=== PATIENT | female | born 1985 | race Caucasian/White ===

== ENCOUNTER 2017-06-22 16:51 | Emergency (ER) | payer OTHER ==
[2017-06-22 16:59] VITALS: BP 130/86
[2017-06-22] MEDS ORDERED: DIPHENHYDRAMINE HCL 25 MG CAPSULE PO ONE (17:05)
[2017-06-22] MEDS ORDERED: PREDNISONE 20 MG TABLET PO ONE (17:05)
[2017-06-22] MEDS ORDERED: FAMOTIDINE 20 MG TABLET PO ONE (17:05)
--- NOTE | 2017-06-22 17:07 | ER Document Report ---
ED Skin Rash/Insect Bite/Abscs - General Chief Complaint: Insect Bite Stated Complaint: POSSIBLE ALLERGIC REACTION Time Seen by Provider: 06/22/17 17:05 Mode of Arrival: Ambulatory Information source: Patient TRAVEL OUTSIDE OF THE [place] IN LAST 30 DAYS: No - HPI Patient complains to provider of: Tender/swollen area, Insect bite Onset: Last week Onset/Duration: Persistent Quality of pain: Achy, Fullness Severity: Mild Pain Level: 1 Quality of rash: Itchy Exacerbated by: Standing, Movement, Walking Relieved by: Denies Similar symptoms previously: No Recently seen / treated by doctor: No Notes: Patient is a 31-year-old female presenting to the emergency room today complaining of insect bite to her left lateral malleolus area that has been swollen and itchy over the past 10 days, she denies any redness, no drainage, no injury to this area, she states it does make it difficult for her to ambulate normally since she has so much swelling to the area, no history of similar symptoms previously - Related Data Allergies/Adverse Reactions: No Known Allergies Allergy (Verified 06/22/17 16:57) Past Medical History - General Information source: Patient - Social History Smoking Status: Never Smoker Family History: Reviewed & Not Pertinent - Past Medical History Cardiac Medical History: Denies: Hx Coronary Artery Disease, Hx Heart Attack, Hx Hypertension Pulmonary Medical History: Denies: Hx Asthma, Hx Bronchitis, Hx COPD, Hx Pneumonia Neurological Medical History: Reports: Hx Migraine. Denies: Hx Cerebrovascular Accident, Hx Seizures Renal/ Medical History: Denies: Hx Peritoneal Dialysis Musculoskeltal Medical History: Denies Hx Arthritis Past Surgical History: Reports: Hx Appendectomy, Hx Section - x2, Hx Oral Surgery, Hx Tonsillectomy - Immunizations Hx Diphtheria, Pertussis, Tetanus Vaccination: Yes Review of Systems - Review of Systems Constitutional: No symptoms reported EENT: No symptoms reported Cardiovascular: No symptoms reported Respiratory: No symptoms reported Gastrointestinal: No symptoms reported Genitourinary: No symptoms reported Female Genitourinary: No symptoms reported Musculoskeletal: No symptoms reported Skin: See HPI Hematologic/Lymphatic: No symptoms reported Neurological/Psychological: No symptoms reported -: Yes All other systems reviewed and negative Physical Exam - Vital signs Vitals: Temp Pulse Resp BP Pulse Ox 97.6 F 95 20 130/86 H 100 06/22/17 16:58 06/22/17 16:58 06/22/17 16:58 06/22/17 16:58 06/22/17 16:58 - Notes Notes: - General General appearance: Appears well, Alert In distress: None - HEENT Head: Normocephalic, Atraumatic Eyes: Normal Conjunctiva: Normal Extraocular movements intact: Yes Eyelashes: Normal Pupils: PERRL - Respiratory Respiratory status: No respiratory distress - Cardiovascular Rhythm: Regular - Abdominal Inspection: Normal - Back Back: Normal - Extremities General upper extremity: Normal inspection General lower extremity: To the tissue surrounding the left lateral malleolus there is a small scabbed area resembling an insect bite, there is mild swelling to this area as well, no ecchymosis, no erythema, no increased warmth, distal sensation and motor is intact - Neurological Neuro grossly intact: Yes Orientation: AAOx4 Red[place] Coma Scale Eye Opening: Spontaneous [place] Coma Scale Verbal: Oriented Red[place] Coma Scale Motor: Obeys Commands Leonela Coma Scale Total: 15 - Psychological Associated symptoms: Normal affect, Normal mood - Skin Skin Temperature: Warm Skin Moisture: Dry Skin Color: Normal Course - Re-evaluation Re-evalutation: 06/22/17 17:12 Physical exam findings are consistent with an insect bite with mild swelling, no erythema, no drainage, no fluctuance, no signs of active infection, patient was discharged with medications for symptomatic relief, advised to follow-up with a primary care provider or return if symptoms worsen, patient acknowledges understanding and agreement with this plan - Vital Signs Vital signs: Temp Pulse Resp BP Pulse Ox 97.6 F 95 20 130/86 H 100 06/22/17 16:58 06/22/17 16:58 06/22/17 16:58 06/22/17 16:58 06/22/17 16:58 Discharge - Discharge Clinical Impression: Insect bite Qualifiers: Encounter type: initial encounter Qualified Code(s): W57.XXXA - Bitten or stung by nonvenomous insect and other nonvenomous arthropods, initial encounter Condition: Stable Disposition: HOME, SELF-CARE Instructions: Insect Bites ([facility]), Swollen Insect Bite or Sting ([facility]) Additional Instructions: Follow up with your primary care provider in one to 2 days. Return to the emergency room immediately if symptoms worsen or any additional concerns. Ice and elevate the affected extremity. Prescriptions: Diphenhydramine HCl [Benadryl 25 Mg Capsule] 25 mg PO Q6 #30 capsule Famotidine [Pepcid 20 mg Tablet] 20 mg PO BID #12 tablet Prednisone 40 mg PO DAILY #8 tablet
== END 2017-06-22 17:15 | disposition home or self-care (01) ==
LOC: ER 16:51
DX: S90.562A Insect bite (nonvenomous), left ankle, initial encounter (principal); W57.XXXA Bitten or stung by nonvenomous insect and other nonvenomous arthropods, initial encounter
CPT/HCPCS: 99281; J7512

== ENCOUNTER 2017-08-08 14:59 | Emergency (ER) | payer OTHER ==
--- NOTE | 2017-08-08 16:40 | ER Document Report ---
ED Medical Screen (RME) - General Chief Complaint: Abdominal Pain Stated Complaint: LEFT FLANK PAIN Mode of Arrival: Ambulatory Information source: Patient TRAVEL OUTSIDE OF THE [place] IN LAST 30 DAYS: No - HPI Notes: 08/08/17 16:37 LLQ PAIN X 2 DAYS. HX OF SCAR TISSUE IN LEFT FALLOPIAN TUBE. NAUSEA. NO VOMITING. NO FEVER. LNMP 1 MONTH AGO. SHOULD BE STARTING ANY TIME. NO HX OF KIDNEY STONES. PRIOR APPY. TENDERNESS TO THE LLQ. - Related Data Allergies/Adverse Reactions: No Known Allergies Allergy (Verified 08/08/17 15:11) Past Medical History - Past Medical History Cardiac Medical History: Denies: Hx Coronary Artery Disease, Hx Heart Attack, Hx Hypertension Pulmonary Medical History: Denies: Hx Asthma, Hx Bronchitis, Hx COPD, Hx Pneumonia Neurological Medical History: Reports: Hx Migraine. Denies: Hx Cerebrovascular Accident, Hx Seizures Renal/ Medical History: Denies: Hx Peritoneal Dialysis Musculoskeltal Medical History: Denies Hx Arthritis Past Surgical History: Reports: Hx Appendectomy, Hx Section - x2, Hx Oral Surgery, Hx Tonsillectomy - Immunizations Hx Diphtheria, Pertussis, Tetanus Vaccination: Yes Review of Systems - Review of Systems -: Yes All other systems reviewed and negative Physical Exam - Vital signs Vitals: Temp Pulse Resp BP Pulse Ox 98.3 F 85 16 114/84 100 08/08/17 15:15 08/08/17 15:15 08/08/17 15:15 08/08/17 15:15 08/08/17 15:15 - General General appearance: Appears well - HEENT Head: Normocephalic - Respiratory Respiratory status: No respiratory distress - Cardiovascular Rhythm: Regular - Abdominal Inspection: Normal Distension: No distension Tenderness: Tender - LLQ - Extremities General lower extremity: Normal inspection - Neurological Neuro grossly intact: Yes - Psychological Associated symptoms: Normal affect - Skin Skin Temperature: Warm Skin Moisture: Dry Course - Vital Signs Vital signs: Temp Pulse Resp BP Pulse Ox 98.3 F 85 16 114/84 100 08/08/17 15:15 08/08/17 15:15 08/08/17 15:15 08/08/17 15:15 08/08/17 15:15
[2017-08-08 18:20] LABS: APPEARANCE,URINE CLEAR; BILIRUBIN,URINE NEGATIVE (NEGATIVE); GLUCOSE, URINE NEGATIVE (NEGATIVE); KETONES,URINE NEGATIVE (NEGATIVE); LEUKOCYTE ESTERASE,URINE NEGATIVE (NEGATIVE); NITRITE,URINE NEGATIVE (NEGATIVE); PROTEIN,URINE NEGATIVE (NEGATIVE); URINE SPECIFIC GRAVITY 1.002; UROBILINOGEN,URINE NEGATIVE mg/dL (<2.0)
[2017-08-08 18:22] LABS: HEMATOCRIT 35.8 % (36.0-47.0); HEMOGLOBIN 12.4 g/dL (12.0-15.5); HGB HCT DIFFERENCE 1.4; MEAN CORPUSCULAR HEMOGLOBIN 28.7 pg (27.0-33.4); MEAN CORPUSCULAR HGB CONC 34.7 g/dL (32.0-36.0); MEAN CORPUSCULAR VOLUME 83 fl (80-97); RED BLOOD COUNT 4.33 10^6/uL (3.72-5.28); RED CELL DISTRIBUTION WIDTH 12.9 % (11.5-14.0); WHITE BLOOD COUNT 9.2 10^3/uL (4.0-10.5)
[2017-08-08 20:38] LABS: ALANINE AMINOTRANSFERASE 28 U/L (9-52); ALBUMIN 4.8 g/dL (3.5-5.0); ALKALINE PHOSPHATASE 42 U/L (38-126); ANION GAP 13 (5-19); ASPARTATE AMINO TRANSFERASE 18 U/L (14-36); BILIRUBIN,DIRECT 0.4 mg/dL (0.0-0.4); BILIRUBIN,TOTAL 0.8 mg/dL (0.2-1.3); BLOOD UREA NITROGEN 6 mg/dL (7-20); CALCIUM 9.8 mg/dL (8.4-10.2); CARBON DIOXIDE 28 mmol/L (22-30); CHLORIDE 103 mmol/L (98-107); CREATININE RESULT 0.66 mg/dL (0.52-1.25); GLUCOSE 90 mg/dL (75-110); LIPASE 77.6 U/L (23-300); POTASSIUM 3.5 mmol/L (3.6-5.0); SODIUM 144.1 mmol/L (137-145); TOTAL PROTEIN 7.4 g/dL (6.3-8.2)
[2017-08-08] MEDS ORDERED: MORPHINE SULFATE 10 MG/ML INJ IV ONE (22:03)
--- NOTE | 2017-08-08 22:15 | ER Document Report ---
ED General - General Chief Complaint: Abdominal Pain Stated Complaint: LEFT FLANK PAIN Time Seen by Provider: 08/08/17 21:32 Mode of Arrival: Ambulatory Information source: Patient Notes: 31-year-old female presents with complaints of left lower quadrant abdominal pain a few day duration. Patient denies any fevers or chills admits to mild nausea associated with the pain. Patient denies any burning on urination TRAVEL OUTSIDE OF THE [place] IN LAST 30 DAYS: No - HPI Onset: Last week Onset/Duration: Persistent Quality of pain: Achy Severity: Mild Pain Level: 1 Associated symptoms: Other Exacerbated by: Denies Relieved by: Denies Similar symptoms previously: No Recently seen / treated by doctor: No - Related Data Allergies/Adverse Reactions: No Known Allergies Allergy (Verified 08/08/17 15:11) Past Medical History - General Information source: Patient - Social History Smoking Status: Never Smoker Cigarette use (# per day): No Chew tobacco use (# tins/day): No Smoking Education Provided: No Frequency of alcohol use: None Drug Abuse: None Family History: Reviewed & Not Pertinent Patient has suicidal ideation: No - Past Medical History Cardiac Medical History: Denies: Hx Coronary Artery Disease, Hx Heart Attack, Hx Hypertension Pulmonary Medical History: Denies: Hx Asthma, Hx Bronchitis, Hx COPD, Hx Pneumonia Neurological Medical History: Reports: Hx Migraine. Denies: Hx Cerebrovascular Accident, Hx Seizures Renal/ Medical History: Denies: Hx Peritoneal Dialysis Musculoskeltal Medical History: Denies Hx Arthritis Past Surgical History: Reports: Hx Appendectomy, Hx Section - x2, Hx Oral Surgery, Hx Tonsillectomy - Immunizations Hx Diphtheria, Pertussis, Tetanus Vaccination: Yes Review of Systems - Review of Systems Notes: REVIEW OF SYSTEMS: CONSTITUTIONAL : Denies fever, chills, or sweats. Denies recent illness. EENT: Denies eye, ear, throat, or mouth pain or symptoms. Denies nasal or sinus congestion or discharge. Denies throat, tongue, or mouth swelling or difficulty swallowing. CARDIOVASCULAR: Denies chest pain. Denies palpitations or racing or irregular heart beat. Denies ankle edema. RESPIRATORY: Denies cough, cold, or chest congestion. Denies shortness of breath, difficulty breathing, or wheezing. GASTROINTESTINAL: Admits to left lower quadrant pain GENITOURINARY: Denies difficulty urinating, painful urination, burning, frequency, blood in urine, or discharge. FEMALE GENITOURINARY: Denies vaginal bleeding, heavy or abnormal periods, irregular periods. Denies vaginal discharge or odor. MUSCULOSKELETAL: Denies back or neck pain or stiffness. Denies joint pain or swelling. SKIN: Denies rash, lesions or sores. HEMATOLOGIC : Denies easy bruising or bleeding. LYMPHATIC: Denies swollen, enlarged glands. NEUROLOGICAL: Denies confusion or altered mental status. Denies passing out or loss of consciousness. Denies dizziness or lightheadedness. Denies headache. Denies weakness or paralysis or loss of use of either side. Denies problems with gait or speech. Denies sensory loss, numbness, or tingling. Denies seizures. PSYCHIATRIC: Denies anxiety or stress. Denies depression, suicidal ideation, or homicidal ideation. ALL OTHER SYSTEMS REVIEWED AND NEGATIVE. PHYSICAL EXAMINATION: GENERAL: Well-appearing, well-nourished and in no acute distress. HEAD: Atraumatic, normocephalic. EYES: Pupils equal round and reactive to light, extraocular movements intact, conjunctiva are normal. ENT: Nares patent, oropharynx clear without exudates. Moist mucous membranes. NECK: Normal range of motion, supple without lymphadenopathy LUNGS: Breath sounds clear to auscultation bilaterally and equal. No wheezes rales or rhonchi. HEART: Regular rate and rhythm without murmurs ABDOMEN: Soft, tender in left lower quadrant no rebound or guarding Female : deferred Musculoskeletal: Normal range of motion, no pitting or edema. No cyanosis. NEUROLOGICAL: Cranial nerves grossly intact. Normal speech, normal gait. Normal sensory, motor exams PSYCH: Normal mood, normal affect. SKIN: Warm, Dry, normal turgor, no rashes or lesions noted. Dictation was performed using [employer] voice recognition software Physical Exam - Vital signs Vitals: Temp Pulse Resp BP Pulse Ox 98.3 F 85 16 114/84 100 08/08/17 15:15 08/08/17 15:15 08/08/17 15:15 08/08/17 15:15 08/08/17 15:15 Course - Re-evaluation Re-evalutation: 08/08/17 22:15 Lab work noted no significant abnormality, patient will be sent for transvaginal ultrasound to rule out any ovarian torsion abscess 08/08/17 22:48 Lab work and ultrasound were normal patient overall looks quite well I believe this may be more musculoskeletal as there is no obvious infectious process noted. I did explain that if there are fevers and she must return immediately as this would not be related to muscle issue. After performing a Medical Screening Examination, I estimate there is LOW risk for ACUTE APPENDICITIS, BOWEL OBSTRUCTION, ACUTE CHOLECYSTITIS, PERFORATED DIVERTICULITIS, INCARCERATED HERNIA, PANCREATITIS, PELVIC INFLAMMATORY DISEASE, PERFORATED ULCER, ECTOPIC , or TUBO-OVARIAN ABSCESS, thus I consider the discharge disposition reasonable. Also, there is no evidence or peritonitis , sepsis, or toxicity. I have reevaluated this patient multiple times and no significant life threatening changes are noted. The patient and I have discussed the diagnosis and risks, and we agree with discharging home with close follow-up with the understanding that symptoms and presentations can change. We also discussed returning to the Emergency Department immediately if new or worsening symptoms occur. We have discussed the symptoms which are most concerning (e.g., bloody stool, fever, changing or worsening pain, vomiting) that necessitate immediate return. - Vital Signs Vital signs: Temp Pulse Resp BP Pulse Ox 97.9 F 96 18 107/68 100 08/08/17 22:21 08/08/17 22:21 08/08/17 22:21 08/08/17 22:21 08/08/17 22:21 - Laboratory Result Diagrams: 08/08/17 17:43 08/08/17 19:57 Laboratory results interpreted by me: 08/08/17 08/08/17 17:43 19:57 Hct 35.8 L Potassium 3.5 L BUN 6 L - Diagnostic Test Radiology reviewed: Image reviewed, Reports reviewed Discharge - Discharge Clinical Impression: LLQ pain Condition: Stable Disposition: HOME, SELF-CARE Instructions: Abdominal Pain ([facility]) Prescriptions: Hydrocodone/Acetaminophen [Honobia 5-325 mg Tablet] 1 tab PO Q6 #10 tablet Metoclopramide HCl [Reglan 10 mg Tablet] 1 - 2 tab PO ASDIR PRN #25 tablet PRN Reason: Referrals: BRENDAN GRADY MD [Primary Care Provider] - Follow up in 3-5 days
[2017-08-08 22:22] VITALS: BP 107/68
--- NOTE | 2017-08-08 22:33 | RADIOLOGY REPORT (SQ) ---
EXAM DESCRIPTION: U/S NON OB PEL TV W/DOPPLER COMPLETED DATE/TIME: 08/08/2017 10:07 pm REASON FOR STUDY: LLQ pain COMPARISON: None. TECHNIQUE: Dynamic and static grayscale images acquired of the pelvis via transvaginal approach and recorded on PACS. Additional selected color Doppler and spectral images recorded. LIMITATIONS: None. FINDINGS: UTERUS: Contour normal. No mass. ENDOMETRIAL STRIPE: No focal or generalized thickening. No masses. CERVIX: No nabothian cysts. RIGHT OVARY: No abnormal masses. RIGHT OVARY DOPPLER: Normal arterial vascular flow without evidence for torsion. LEFT OVARY: No abnormal masses. LEFT OVARY DOPPLER: Normal arterial vascular flow without evidence for torsion. FREE FLUID: None noted. OTHER: No other significant finding. MEASUREMENTS: UTERUS: 9.3 x 5.6 x 4.4 cm ENDOMETRIAL STRIPE: 6.5 mm RIGHT OVARY: 2.5 x 1.8 x 2.3 cm LEFT OVARY: 3.1 x 2.3 x 2.2 cm IMPRESSION: Age-appropriate exam. TECHNICAL DOCUMENTATION: JOB ID: [id number]- All Rights Reserved
== END 2017-08-08 23:15 | disposition home or self-care (01) ==
LOC: ER 14:59
DX: R10.32 Left lower quadrant pain (principal); R11.0 Nausea; Z90.49 Acquired absence of other specified parts of digestive tract
CPT/HCPCS: 99284; 96374; 36415; 84702; 83690; 85027; 80053; 81001; 76830; 93976; J2270

== ENCOUNTER 2019-02-15 21:16 | Emergency (ER) | payer OTHER ==
--- NOTE | 2019-02-15 22:30 | RADIOLOGY REPORT (SQ) ---
EXAM DESCRIPTION: XR FINGERS COMPLETED DATE/TME: 02/15/2019 00:00 CLINICAL HISTORY: 33 years, Female, swelling COMPARISON: None. NUMBER OF VIEWS: 3 TECHNIQUE: 3 views of the left second digit LIMITATIONS: None. FINDINGS: Soft tissue swelling distally however no acute fracture. No radiopaque foreign body. Joint spaces are preserved IMPRESSION: Distal soft tissue injury of the second digit with no acute osseous abnormality copyright 2010 [email or web address]- All Rights Reserved
--- NOTE | 2019-02-16 01:59 | ER Document Report ---
HPI - HPI Time Seen by Provider: 02/16/19 01:52 Pain Level: 3 Notes: Patient is a 33-year-old female who comes to the emergency department with a laceration to her left index finger. She states that around 8 AM yesterday morning she was cutting ham off of the bone when she cut her finger with a foam caster knife. States that initially there was bleeding, she placed skin glue to the laceration area and applied a bandage. States that the bleeding has been controlled. Reports that her tetanus shot is up-to-date. - REPRODUCTIVE Reproductive: DENIES: : Past Medical History - Social History Smoking Status: Unknown if Ever Smoked Family History: Reviewed & Not Pertinent - Past Medical History Cardiac Medical History: Denies: Hx Coronary Artery Disease, Hx Heart Attack, Hx Hypertension Pulmonary Medical History: Denies: Hx Asthma, Hx Bronchitis, Hx COPD, Hx Pneumonia Neurological Medical History: Reports: Hx Migraine. Denies: Hx Cerebrovascular Accident, Hx Seizures Renal/ Medical History: Denies: Hx Peritoneal Dialysis Musculoskeletal Medical History: Denies Hx Arthritis Past Surgical History: Reports: Hx Appendectomy, Hx Section - x2, Hx Oral Surgery, Hx Tonsillectomy - Immunizations Hx Diphtheria, Pertussis, Tetanus Vaccination: Yes Vertical Provider Document - CONSTITUTIONAL Agree With Documented VS: Yes Exam Limitations: No Limitations General Appearance: No Apparent Distress - INFECTION CONTROL TRAVEL OUTSIDE OF THE [place] IN LAST 30 DAYS: No - NECK Neck: Normal Inspection - RESPIRATORY Respiratory: Breath Sounds Normal, No Respiratory Distress - CARDIOVASCULAR Cardiovascular: Regular Rate - NEURO Level of Consciousness: Awake, Alert, Appropriate - DERM Integumentary: Warm, Laceration - 2 cm irregular superficial laceration noted to tip of left index finger. full strength against flexion and extension resistance. Course - Re-evaluation Re-evalutation: 02/16/19 02:16 X-ray of the left second digit showed soft tissue swelling distally however no acute fracture. No radiopaque foreign body. Joint spaces are preserved. No acute osseous abnormality. 02/16/19 Patient reports that injury occurred at around 8 AM the morning of and she placed a skin glue over laceration to control bleeding. States the wound intermittently broke open and oozed throughout the day. After removing the remaining skin glue and cleaning wound it was found that sutures would be needed to repair the laceration in a certain area. 3 sutures placed in the center of the laceration and dermabond used for the remainder of the laceration due to well approximation. Patient was placed on Keflex as an antibiotic prophylaxis due to the between injury and repair. Patient aware to return to PCP or ER to have sutures removed within 7-10 days. Seek medical attention for hand swelling, fever, drainage, foul-smelling odor coming from wound, inability to move finger. - Vital Signs Vital signs: Temp Pulse Resp BP Pulse Ox 98.0 F 83 16 112/80 99 02/15/19 23:41 02/15/19 23:41 02/15/19 23:41 02/15/19 23:41 02/15/19 23:41 - Diagnostic Test Radiology reviewed: Image reviewed, Reports reviewed Procedures - Laceration/Wound Repair Left Finger 2nd digit Wound length (cm): 2 Wound's Depth, Shape: Superficial, Irregular Laceration pre-procedure: Sterile drapes applied, Shur-Clens applied Anesthetic type: 1% Lidocaine Volume Anesthetic (mLs): 2 Wound explored: Clean, No foreign body removed Irrigated w/ Saline (mLs): 500 Wound Repaired With: Sutures, Dermabond Suture Size/Type: 4:0, Nylon Number of Sutures: 3 Layer Closure?: Yes Post-procedure NV exam normal: Yes Complications: No Hands front picture: 1 - irregular 2 cm superficial laceration noted to left index finger, 3 sutures placed in the center of the cut. dermabond placed on rest of laceration due to superficial small lac. bleeding controlled. Discharge - Discharge Clinical Impression: Laceration of finger Qualifiers: Encounter type: initial encounter Finger: index finger Damage to nail status: unspecified Foreign body presence: without foreign body Laterality: left Qualified Code(s): S61.211A - Laceration without foreign body of left index finger without damage to nail, initial encounter Condition: Stable Disposition: HOME, SELF-CARE Additional Instructions: Laceration Care Your laceration has been sutured to keep the skin edges aligned during healing. The time of suture removal depends on the nature and location of your cut. Please follow the care instructions the doctor has outlined for you and carmenza casey for further care, according to the schedule you've been given. Keep the wound and dressing clean. Unless you were told otherwise, you may shower daily, blotting the wound dry with a clean, unused towel. At other times, If the dressing gets wet or blood soaked, remove it and blot the wound dry, then reapply a new dressing. Unless you were instructed otherwise, dressings should be changed at least daily. If any signs of infection occur (swelling, redness, increasing tenderness, red streaks, tender lumps in the armpit or groin above the laceration, or fever), see the doctor immediately. You were seen in the emergency department today for a left index finger lac eration. You did have 3 sutures placed to the site. These will need to come out in 7-10 days. Please keep the laceration clean dry and intact. Please seek medical attention if you have any increased swelling to the left index finger or hand, discharge or foul-smelling odor from site, inability to move finger, fever, or any worsening symptoms. Please take antibiotics until completed. Prescriptions: Cephalexin Monohydrate [Keflex 500 mg Capsule] 500 mg PO Q6H 5 Days #20 capsule Referrals: BRENDAN GRADY MD [ACTIVE STAFF] - Follow up as needed
[2019-02-16] MEDS ORDERED: LIDOCAINE 1% INJ-PF (10 MG/ML) 30 ML SDV INJ ONE (02:30)
[2019-02-16 03:30] VITALS: BP 109/69
== END 2019-02-16 03:29 | disposition home or self-care (01) ==
LOC: ER 21:16
DX: S61.211A Laceration without foreign body of left index finger without damage to nail, initial encounter (principal); W26.0XXA Contact with knife, initial encounter; Y93.G1 Activity, food preparation and clean up
CPT/HCPCS: 99283; 73140; 12001; J3490